=== PATIENT | female | born 1985 | race African-American/Black ===

== ENCOUNTER 2021-01-05 08:21 | Emergency (ER) | payer MEDICAID ==
[~2021-01-05] VITALS: Ht 170.2 cm; Wt 64.0 kg
[2021-01-05 08:22] VITALS: BP 110/72
== END 2021-01-05 09:53 | disposition home or self-care (01) ==
LOC: ER 08:46
DX: R51.9 Headache, unspecified (principal); R55 Syncope and collapse
CPT/HCPCS: 99283